=== PATIENT | female | born 1970 | race African-American/Black ===

== ENCOUNTER 2023-06-30 18:14 | Emergency (ER) | payer MEDICAID ==
[~2023-06-30] VITALS: Ht 175.3 cm; Wt 73.0 kg
[2023-06-30 18:20] VITALS: O2SAT 96
[2023-06-30] MEDS: LEVETIRACETAM 500MG PREMIX 100 ML IV ONE (19:15)
[2023-06-30] MEDS: LORAZEPAM 2MG/ML INJ IV ONE (19:15)
[2023-06-30 20:20] LABS: BASOPHILS % 0.4 % (0.0-2.0); EOSINOPHILS % 0.1 % (0.0-5.0); HEMATOCRIT. 44.2 % (36.0-48.0); HEMOGLOBIN. 13.9 g/dL (12.0-16.0); LYMPHOCYTES % 9.8 % (20.0-50.0); MEAN CORPUSCULAR HEMOGLOBIN 28.1 pg (28.0-32.0); MEAN CORPUSCULAR HGB CONC 31.5 g/dL (31.0-37.0); MEAN CORPUSCULAR VOLUME 89.3 fL (81.0-99.0); MEAN PLATELET VOLUME 9.3 fl (7.4-10.4); MONOCYTES % 4.6 % (2.0-8.0); NEUTROPHILS % 85.1 % (40.0-76.0); PLATELET 200 x1000/uL (130-400); RED BLOOD CELL COUNT 4.95 mill/uL (4.2-5.4); RED CELL DISTRIBUTION WIDTH 13.9 % (11.6-14.6); WHITE BLOOD COUNT 16.2 x1000/uL (4.5-11.0)
[2023-06-30 20:27] LABS: CALCIUM 9.1 mg/dL (8.7-10.4); CARBON DIOXIDE 20 mEq/L (21-32); CHLORIDE 104 mEq/L (98-107); CREATININE 0.8 mg/dL (0.6-1.0); GLUCOSE 180 mg/dL (70-105); POTASSIUM 4.3 mEq/L (3.5-5.1); SODIUM 134 mEq/L (136-145); UREA NITROGEN BLOOD 9 mg/dL (9-23)
[2023-06-30 23:10] VITALS: BP 138/70; PULSE 101; RESP 18; TEMP 98.2
[2023-06-30] MEDS ORDERED: ACETAMINOPHEN 325MG TABLET PO ONE (23:15)
== END 2023-06-30 23:44 | disposition home or self-care (01) ==
LOC: ER 18:14
DX: G40.909 Epilepsy, unspecified, not intractable, without status epilepticus (principal)
CPT/HCPCS: 99284; 96365; 96366; 96375; 80048; 82962; 85025; 36415; J1953; J2060